=== PATIENT | female | born 1975 | race Caucasian/White ===

== ENCOUNTER 2018-02-12 18:47 | Emergency (ER) | payer OTHER ==
[~2018-02-12] VITALS: Ht 160 cm; Wt 90.3 kg
[2018-02-12 19:07] VITALS: BP_SYST 152
[2018-02-12 19:52] LABS: BILIRUBIN,URINE NEGATIVE (NEGATIVE); BLOOD, URINE NEGATIVE (NEGATIVE); CLARITY/URINE CLEAR (CLEAR); COLOR,URINE YELLOW (YELLOW); GLUCOSE,URINE NEGATIVE (NEGATIVE); KETONES,URINE NEGATIVE (NEGATIVE); LEUKOCYTE ESTERASE ,URINE 1+ (NEGATIVE); NITRITE, URINE NEGATIVE (NEGATIVE); PROTEIN URINE NEGATIVE (NEGATIVE); UROBILINOGEN,URINE 0.2 (0.2-1.0)
[2018-02-12 20:02] LABS: BACTERIA,URINE FEW /HPF (None Seen); RBC,URINE 0-3 /HPF (0-3); WBC,URINE 20-50 /HPF (0-3)
[2018-02-12] MEDS ORDERED: NACL 0.9% 1,000 ML IV ONE (21:22)
[2018-02-12] MEDS ORDERED: ONDANSETRON HCL 4 MG/2 ML VIAL IVP ONE (21:30)
[2018-02-12 21:38] LABS: CALCIUM 8.7 mg/dL (8.4-11.0); CREATININE 1.76 mg/dL (0.55-1.30); POTASSIUM 3.8 mmol/L (3.5-5.1)
[2018-02-12 21:42] LABS: ALBUMIN 3.1 g/dL (3.4-4.8); TOTAL BILIRUBIN 0.2 mg/dL (0.0-1.0)
[2018-02-12 21:53] LABS: BASOPHILS # (AUTO) 0.1 K/uL (0.0-0.2); BASOPHILS % (AUTO) 0.5 % (0.0-2.0); EOSINOPHILS # (AUTO) 0.1 K/uL (0.0-0.4); EOSINOPHILS % (AUTO) 1.1 % (0.0-4.0); HEMATOCRIT 36.4 % (36-48); LYMPHOCYTES # (AUTO) 1.3 K/uL (1.0-5.5); LYMPHOCYTES % (AUTO) 10.3 % (20.5-51.5); MEAN CORPUSCULAR HEMOGLOBIN 29 pg (27-31); MEAN CORPUSCULAR HGB CONC 33 % (32-36); MEAN CORPUSCULAR VOLUME 87 fL (79.0-98.0); MONOCYTES # (AUTO) 0.9 K/uL (0.0-1.0); MONOCYTES % (AUTO) 7.5 % (1.7-9.3); NEUTROPHILS # (AUTO) 10.2 K/uL (1.8-7.7); NEUTROPHILS % (AUTO) 80.6 % (40.0-70.0); RED BLOOD CELL COUNT(AUTO) 4.21 MIL/uL (4.2-6.2); WHITE BLOOD COUNT (AUTO) 12.6 K/uL (4.8-10.8)
[2018-02-12 22:26] LABS: PLATELET COUNT (AUTO) 198 K/uL (130-430)
[2018-02-13] MEDS ORDERED: CEPHALEXIN 500 MG CAPSULE PO ONE
[2018-02-13 00:07] VITALS: BP_SYST 112
== END 2018-02-13 00:07 | disposition home or self-care (01) ==
LOC: SED 18:47
DX: N20.0 Calculus of kidney (principal); N39.0 Urinary tract infection, site not specified; R03.0 Elevated blood-pressure reading, without diagnosis of hypertension; J45.909 Unspecified asthma, uncomplicated; Z90.49 Acquired absence of other specified parts of digestive tract
CPT/HCPCS: 36415; 74176; 80053; 81000; 83690; 85025; 87086; 96361; 96374; 99285; J2405; J7030